=== PATIENT | male | born 1980 | race Caucasian/White ===

== ENCOUNTER 2018-05-25 04:21 | Emergency (ER) | payer OTHER ==
--- NOTE | 2018-05-25 05:09 | ED PDOC ---
HPI: Abdomen History Per: Patient Additional Complaint(s): Pt. states 3 days ago he developed epigastric abd pain which lasted for 3 hours then resolved spontaneously. States same pain returned 4 hours ago which prompted ED visit. Further states last year he had the same pain and was seen in an ED and was told to f/u with GI as his work up there was normal. Pt. states he had 2 US of the abdomen done along with an MRI of the abdomen all of which were normal except for it showing gallstones. Further states he returned from a 3 week trip in [place] 4 days ago. Also states he feels constipated as stool has been small. Last BM was today. Denies fever, N/V/D, chest pain, dysuria, hematuria, previous abd surgeries, melena, hematochezia, BRBPR. <Donald Miguel - Last Filed: 05/25/18 05:48> <Alpesh Velasquez - Last Filed: 05/25/18 06:45> Time Seen by Provider: 05/25/18 04:48 Chief Complaint (Nursing): Abdominal Pain Past Medical History Reviewed: Historical Data, Nursing Documentation, Vital Signs Vital Signs: Last Vital Signs Temp 97.4 F L 05/25/18 04:50 Pulse 57 L 05/25/18 04:50 Resp 14 05/25/18 04:50 BP 122/77 05/25/18 04:50 Pulse Ox 99 05/25/18 04:50 - Surgical History Surgical History: No Surg Hx - Family History Family History: States: No Known Family Hx <Donald Miguel Last Filed: 05/25/18 05:48> Vital Signs: Last Vital Signs Temp 97.4 F L 05/25/18 04:50 Pulse 57 L 05/25/18 04:50 Resp 14 05/25/18 04:50 BP 122/77 05/25/18 04:50 Pulse Ox 99 05/25/18 05:49 <Alpesh Velasquez - Last Filed: 05/25/18 06:45> - Allergies Allergies/Adverse Reactions: Allergies Allergy/AdvReac Type Severity Reaction Status Date / Time No Known Allergies Allergy Verified 05/25/18 04:50 Review of Systems ROS Statement: Except As Marked, All Systems Reviewed And Found Negative Gastrointestinal: Positive for: Abdominal Pain <Donald Miguel Filed: 05/25/18 05:48> Physical Exam - Physical Exam Appears: Positive for: Well, Non-toxic, No Acute Distress Skin: Positive for: Normal Color, Warm. Negative for: Rash Eye Exam: Positive for: Normal appearance, EOMI, PERRL. Negative for: Scleral icterus Cardiovascular/Chest: Positive for: Regular Rate, Rhythm Respiratory: Positive for: Normal Breath Sounds. Negative for: Respiratory Distress Gastrointestinal/Abdominal: Positive for: Normal Exam, Bowel Sounds, Soft, Tenderness (Minimal epigastric tenderness). Negative for: Distended, Guarding Neurologic/Psych: Positive for: Alert, Oriented (x3) <LamontDonald Cifuentes - Last Filed: 05/25/18 05:48> - ECG O2 Sat by Pulse Oximetry: 99 - Progress ED Course And Treament: Labs, pepcid 20mg IV, KUB ordered. <LamontDonald Cifuentes - Last Filed: 05/25/18 05:48> - Laboratory Results Result Diagrams: 05/25/18 05:15 05/25/18 05:15 <Alpesh Velasquez - Last Filed: 05/25/18 06:45> Medical Decision Making Medical Decision Makin PAtient endorsed to Dr. Carrillo pending BMP, LFT, and re-eval <Alpesh Velasquez - Last Filed: 05/25/18 06:45> Disposition - Patient ED Disposition Is Patient to be Admitted: Transfer of Care (Dr. Velasquez continued care at the end of my shift) - Disposition Disposition Time: 06:00 <Donald Miguel Esau - Last Filed: 05/25/18 05:48> - Patient ED Disposition Is Patient to be Admitted: Transfer of Care - Disposition Disposition: Transfer of Care Disposition Time: 07:00 Patient Signed Over To: Alfredo Carrillo Handoff Comments: pending re-eval and labs <Alpesh Velasquez - Last Filed: 05/25/18 06:45> - Clinical Impression Clinical Impression: Abdominal pain - Disposition Condition: STABLE Forms: [employer] (Mongolian)
[2018-05-25 05:58] LABS: BASO % 0.2 % (0.0-2.0); EOS # 0.1 K/uL (0.0-0.7); EOS % 0.8 % (0.0-4.0); HEMOGLOBIN 14.7 g/dL (12.0-18.0); LYMPH # 0.5 K/uL (1.0-4.3); LYMPH % 8.6 % (20.0-40.0); MEAN CELL VOLUME 87.2 fl (80.0-94.0); MEAN CORPUSCULAR HEMOGLOBIN 29.8 pg (27.0-31.0); MEAN CORPUSCULAR HGB CONC 34.2 g/dL (33.0-37.0); MEAN PLATELET VOLUME 8.2 fl (7.2-11.7); MONO # 0.3 K/uL (0.0-0.8); MONO % 4.8 % (0.0-10.0); NEUT # 5.5 K/uL (1.8-7.0); NEUT % 85.6 % (50.0-75.0); PLATELET COUNT 306 K/uL (130-400); RBC 4.93 Mil/uL (4.40-5.90); RED CELL DISTRIBUTION WIDTH 13.4 % (11.5-14.5); WHITE BLOOD COUNT 6.4 K/uL (4.8-10.8)
[2018-05-25 07:09] LABS: ALB/GLOB RATIO 1.2 (1.0-2.1); ALBUMIN 4.3 g/dL (3.5-5.0); ALT/SGPT 36 U/L (21-72); AST/SGOT 30 U/L (17-59); BILIRUBIN,DIRECT 0.2 mg/ml (0.0-0.4); BLOOD UREA NITROGEN 15 mg/dl (9-20); CALCIUM 9.3 mg/dL (8.4-10.2); GFR NON-AFRICAN AMERICAN > 60
--- NOTE | 2018-05-25 07:11 | ED PDOC ---
- Laboratory Results Result Diagrams: 05/25/18 05:15 05/25/18 06:45 Interpretation Of Abn Labs: no acute - ECG O2 Sat by Pulse Oximetry: 99 (RA) Pulse Ox Interpretation: Normal - Progress ED Course And Treament: 833: Stable. AAOx3. Pain free since being in the ER. Has had same many times and no findings to date. Fu with pcp/GI. Tolerated po. Medical Decision Making Medical Decision Making: Time: 0700 -- Patient endorsed to me by Dr. Velasquez, pending follow up on BMP and LFTs. If results are negative, patient will be stable for discharge home. Scribe Attestation: Documented by Chicho Merritt, acting as a scribe for Alfredo Carrillo MD. Provider Scribe Attestation: All medical record entries made by the Scribe were at my direction and personally dictated by me. I have reviewed the chart and agree that the record accurately reflects my personal performance of the history, physical exam, medical decision making, and the department course for this patient. I have also personally directed, reviewed, and agree with the discharge instructions and disposition. Disposition Counseled Patient/Family Regarding: Studies Performed, Diagnosis - Clinical Impression Clinical Impression: Abdominal pain - POA Present On Arrival: None - Disposition Referrals: River David MD, PhD [Staff Provider] - 05/28/18 [facility] [Outside] - 05/27/18 Disposition: Routine/Home Disposition Time: 08:36 Condition: STABLE Additional Instructions: Return if not better in 3 days. Instructions: Acute Abdomen (Belly Pain) Forms: [employer] (Surinamese), [facility] ED School/Work Excuse
[2018-05-25 07:23] LABS: SQUAMOUS EPITHIAL 1 /hpf (0-5); URINE BILIRUBIN NEGATIVE (NEGATIVE); URINE BLOOD NEGATIVE (NEGATIVE); URINE CLARITY TURBID (Clear); URINE COLOR YELLOW (YELLOW); URINE GLUCOSE (UA) NEG (Normal); URINE LEUKOCYTE ESTERASE NEG Leu/uL (Negative); URINE PROTEIN NEGATIVE (NEGATIVE); URINE UROBILINOGEN 0.2-1.0 mg/dL (0.2-1.0)
[2018-05-25 07:52] VITALS: BP 103/62; PULSE 60; RESP 16; TEMP 98.4
--- NOTE | 2018-05-25 08:18 | RAD ---
Date of service: 05/25/2018 HISTORY: epigastric abd pain COMPARISON: None available. FINDINGS: BOWEL: Normal. No obstruction. No free air. BONES: Normal. OTHER FINDINGS: None. IMPRESSION: No active disease.
[2018-05-25 08:36] VITALS: O2SAT 99
[2018-05-25 08:41] LABS: LIPASE 68 U/L (23-300)
[2018-05-25 10:13] LABS: LYMPHOCYTE 10 % (20-50); MONOCYTE 4 % (0-10); NEUTROPHIL 86 % (42-75); PLATELET ESTIMATE NORMAL (NORMAL); TOTAL CELLS COUNTED 100
[2018-05-25 10:14] LABS: ANISOCYTOSIS SLIGHT; LARGE PLATELETS PRESENT; OVALOCYTES SLIGHT
== END 2018-05-25 08:53 | disposition home or self-care (01) ==
LOC: H.ER 04:21
DX: R10.13 Epigastric pain (principal)

== ENCOUNTER 2018-08-02 22:49 | Emergency (ER) | payer OTHER ==
[2018-08-02 23:56] VITALS: BP 127/77; PULSE 69; RESP 16; TEMP 98.1; O2SAT 98
== END 2018-08-03 01:46 | disposition home or self-care (01) ==
LOC: H.ER 22:49
DX: Z02.89 Encounter for other administrative examinations (principal)